=== PATIENT | female | born 2005 | race Hispanic/Latino ===

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

== ENCOUNTER 2024-02-28 22:46 | Emergency (ER) | payer OTHER ==
[~2024-02-28] VITALS: Ht 157.5 cm; Wt 65.0 kg
[~2024-02-28 22:46] MED LIST: KEFLEX500 MG PO; METHOCARBAMOL500 MG PO; NAPROXEN500 MG PO
[2024-02-28 23:03] VITALS: BP 117/69
[2024-02-28 23:18] VITALS: BP 108/69
[2024-02-28 23:30] VITALS: BP 107/62
[2024-02-28] MEDS ORDERED: HYDROmorphone HCL 2 MG/AMP IV ONE (23:30)
[2024-02-28] MEDS ORDERED: SODIUM CHLORIDE 0.9% 1,000 ML IV ONE (23:30)
[2024-02-28 23:40] VITALS: BP 110/71
[2024-02-28 23:45] VITALS: BP 97/62
[2024-02-29] VITALS (17 sets, daily range): BP systolic 99–124; BP diastolic 58–81
[2024-02-29 00:20] LABS: BASO% 0.1 % (0-3); EOS% 0.3 % (0-8); IMMATURE GRANULOCYTES 0.7 % (0.0-5.0); LYMPH% 30.4 % (15-41); MEAN CORPUSCULAR HGB 31.7 pG CALC (26.0-32.0); MEAN CORPUSCULAR HGB CONC 35.2 g/dL CAL (32.0-36.0); NEUT# 6.66 thou/uL (2.00-7.15); NEUT% 61.5 % (42-76); RED BLOOD COUNT 3.41 mill/uL (4.20-5.60); RED CELL DISTRI WIDTH 13.2 % (11.5-15.5)
[2024-02-29] MEDS ORDERED: HYDROmorphone HCL 2 MG/AMP IV ONE (00:20)
[2024-02-29 00:21] LABS: HEMATOCRIT 30.7 % (37.0-47.0); HEMOGLOBIN 10.8 g/dl (12.0-16.0)
[2024-02-29 00:27] LABS: ALBUMIN 4.3 g/dL (3.2-5.0); BILIRUBIN, TOTAL 0.4 mg/dL (0.02-1.3); CREATININE 0.5 mg/dL (0.5-1.0); POTASSIUM 3.5 mmol/l (3.5-5.1); TOTAL PROTEIN 7.7 g/dL (6.3-8.2)
[2024-02-29 00:33] LABS: URINE BILIRUBIN - DIPSTICK Negative (NEGATIVE); URINE BLOOD DIPSTICK Trace-intact (NEGATIVE); URINE COLOR Yellow; URINE GLUCOSE - DIPSTICK Negative (NEGATIVE); URINE KETONE Negative (NEGATIVE); URINE LEUK ESTERASE Negative (NEGATIVE); URINE NITRITE - DIPSTICK Negative (Negative); URINE PH 8.5 (4.5-8.0); URINE PROTEIN - DIPSTICK Negative (NEG-TRACE); URINE UROBILINOGEN - DIPSTICK 0.2 E.U./dL (0.2)
[2024-03-01] MEDS ORDERED: LORTAB 5/3255 MG PO (04:08)
[2024-03-01] MEDS ORDERED: TAMSULOSIN0.4 MG PO (04:08)
[2024-03-01] MEDS ORDERED: KEFLEX500 MG PO (04:08)
== END 2024-02-29 05:09 | disposition home or self-care (01) ==
LOC: ED 22:46
PROVIDERS: Emergency Medicine
DX: O26.892 Other specified pregnancy related conditions, second trimester (principal); R10.9 Unspecified abdominal pain; Z3A.17 17 weeks gestation of pregnancy

== ENCOUNTER 2024-02-29 17:36 | Emergency (ER) | payer OTHER ==
[2024-02-29] VITALS (7 sets, daily range): BP systolic 114–130; BP diastolic 65–84
[~2024-02-29] VITALS: Ht 157.5 cm; Wt 56.2 kg
[2024-02-29] MEDS ORDERED: SODIUM CHLORIDE 0.9% 1,000 ML IV ONE ×3 (17:55→23:15)
[2024-02-29 18:34] LABS: URINE BILIRUBIN - DIPSTICK Negative (NEGATIVE); URINE BLOOD DIPSTICK Negative (NEGATIVE); URINE GLUCOSE - DIPSTICK Negative (NEGATIVE); URINE KETONE Negative (NEGATIVE); URINE LEUK ESTERASE Negative (NEGATIVE); URINE NITRITE - DIPSTICK Negative (Negative); URINE PH 7.5 (4.5-8.0); URINE PROTEIN - DIPSTICK Negative (NEG-TRACE); URINE UROBILINOGEN - DIPSTICK 0.2 E.U./dL (0.2)
[2024-02-29 18:35] LABS: HEMOGLOBIN 11.6 g/dl (12.0-16.0); IMMATURE GRANULOCYTES 0.2 % (0.0-5.0); LYMPH% 9.6 % (15-41); MEAN CELL VOLUME 91.6 fL CALC (80.0-100.0); MEAN CORPUSCULAR HGB 31.3 pG CALC (26.0-32.0); MEAN CORPUSCULAR HGB CONC 34.1 g/dL CAL (32.0-36.0); MONO% 7.2 % (2-13); NEUT# 11.58 thou/uL (2.00-7.15); RED BLOOD COUNT 3.71 mill/uL (4.20-5.60)
[2024-02-29] MEDS ORDERED: ONDANSETRON HCl 4 MG/2 ML SDV IV ONE (18:35)
[2024-02-29] MEDS ORDERED: MORPHINE SULFATE 4 MG/ML VIAL IV ONE ×2 (18:35→23:15)
[2024-02-29 18:37] LABS: URINE COLOR Yellow
[2024-02-29 18:55] LABS: ALBUMIN 3.9 g/dL (3.2-5.0); BILIRUBIN, TOTAL 0.6 mg/dL (0.02-1.3); CREATININE 0.8 mg/dL (0.5-1.0); POTASSIUM 3.2 mmol/l (3.5-5.1)
[2024-02-29] MEDS ORDERED: HYDROcodone 5 MG/Acetaminophen 325 MG/COMBO PO ONE (21:45)
[2024-02-29] MEDS ORDERED: POTASSIUM CHLORIDE 20 MEQ/TAB PO ONE (22:25)
[2024-02-29] MEDS ORDERED: PROMETHAZINE HCL 25 MG/ML AMP IV ONE (23:15)
[2024-02-29] MEDS ORDERED: DIATRIZOATE MEGLUMINE & SODIUM 30 ML/BTL BTL PO ONE (23:15)
[2024-03-01] MEDS ORDERED: TAMSULOSIN HCL 0.4 MG CAP PO ONE (04:05)
[2024-03-01] MEDS ORDERED: CEPHALEXIN MONOHYDRATE 500 MG/CAP PO ONE (04:05)
[2024-03-01] MEDS ORDERED: LORTAB 5/3255 MG PO (04:08)
[2024-03-01] MEDS ORDERED: KEFLEX500 MG PO (04:08)
[2024-03-01] MEDS ORDERED: TAMSULOSIN0.4 MG PO (04:08)
[2024-03-01 04:25] VITALS: BP 104/65
[2024-03-01 04:26] VITALS: BP 104/62
== END 2024-03-01 04:25 | disposition home or self-care (01) ==
LOC: ED 17:36
PROVIDERS: Nurse Practitioner
DX: O23.02 Infections of kidney in pregnancy, second trimester (principal); N13.6 Pyonephrosis

== ENCOUNTER 2024-03-16 21:16 | Emergency (ER) | payer OTHER ==
[~2024-03-16] VITALS: Ht 157.5 cm; Wt 54.0 kg
[~2024-03-16 21:16] MED LIST changes: +LORTAB 5/3255 MG PO; +TAMSULOSIN0.4 MG PO
[2024-03-16] MEDS ORDERED: PROMETHAZINE HCL 25 MG/ML AMP IV ONE (21:55)
[2024-03-16] MEDS ORDERED: SODIUM CHLORIDE 0.9% 1,000 ML IV ONE (21:55)
[2024-03-16] MEDS ORDERED: ACETAMINOPHEN 500 MG TAB PO ONE (21:55)
[2024-03-16 22:01] VITALS: BP 110/71
[2024-03-16 22:11] LABS: URINE BLOOD DIPSTICK Negative (NEGATIVE); URINE GLUCOSE - DIPSTICK Negative (NEGATIVE); URINE KETONE Trace mg/dL (NEGATIVE); URINE LEUK ESTERASE Negative (NEGATIVE); URINE NITRITE - DIPSTICK Negative (Negative); URINE PROTEIN - DIPSTICK 30 mg/dL (NEG-TRACE)
[2024-03-16 22:13] LABS: URINE COLOR Yellow
[2024-03-16 22:16] VITALS: BP 100/56
[2024-03-16 22:21] LABS: URINE BACTERIA FEW hpf; URINE RBC 0-2 RBC/hpf (0-5); URINE SQUAMOUS EPITHELIAL CELL FEW EPI/hpf (0-FEW)
[2024-03-16 22:31] VITALS: BP 107/62
[2024-03-16 22:38] LABS: BASO% 0.2 % (0-3); EOS% 0.6 % (0-8); HEMATOCRIT 29.7 % (37.0-47.0); HEMOGLOBIN 10.4 g/dl (12.0-16.0); IMMATURE GRANULOCYTES 0.5 % (0.0-5.0); LYMPH% 19.5 % (15-41); MEAN CELL VOLUME 89.5 fL CALC (80.0-100.0); MEAN CORPUSCULAR HGB 31.3 pG CALC (26.0-32.0); MONO% 10.1 % (2-13); NEUT# 5.86 thou/uL (2.00-7.15); NEUT% 69.1 % (42-76); RED BLOOD COUNT 3.32 mill/uL (4.20-5.60); RED CELL DISTRI WIDTH 12.5 % (11.5-15.5)
[2024-03-16 22:52] VITALS: BP 104/64
[2024-03-16 23:01] LABS: BILIRUBIN, TOTAL 0.5 mg/dL (0.02-1.3); CREATININE 0.6 mg/dL (0.5-1.0); POTASSIUM 3.7 mmol/l (3.5-5.1); TOTAL PROTEIN 7.6 g/dL (6.3-8.2)
[2024-03-16] MEDS ORDERED: TRAMADOL HCL50 MG PO (23:07)
[2024-03-16] MEDS ORDERED: traMADol HCL 50 MG/TAB PO ONE (23:10)
[2024-03-16 23:16] VITALS: BP 105/52
[2024-03-16 23:20] VITALS: BP 105/52
== END 2024-03-16 23:20 | disposition home or self-care (01) ==
LOC: ED 21:16
PROVIDERS: Family Medicine
DX: O26.892 Other specified pregnancy related conditions, second trimester (principal); R10.33 Periumbilical pain; Z3A.17 17 weeks gestation of pregnancy; Z87.442 Personal history of urinary calculi